=== PATIENT | female | born 1945 | race Caucasian/White ===

== ENCOUNTER → 2023-11-29 13:24 | Outpatient (REF) | payer BC, SELFPAY | LOC: HWRAD 13:24 | PROVIDERS: ATTENDING PHYSICIAN Nurse Practitioner | DX: R10.32 Left lower quadrant pain (principal) | CPT/HCPCS: 73502; 76882 ==

== ENCOUNTER → 2024-05-26 13:47 | Outpatient (REF) | payer BC, SELFPAY | LOC: HWRCS 13:47 | PROVIDERS: ATTENDING PHYSICIAN Internal Medicine Cardiovascular Disease; FAMILY PHYSICIAN Internal Medicine | DX: R06.02 Shortness of breath (principal) | CPT/HCPCS: 93306 ==